=== PATIENT | male | born 1990 | race Caucasian/White ===

== ENCOUNTER 2023-10-12 16:45 | Emergency (ER) | payer OTHER ==
[~2023-10-12] VITALS: Ht 185.4 cm; Wt 111.4 kg
[2023-10-12 17:33] LABS: BASOPHILS # (AUTO) 0.1 X10'3 (0-0.2); BASOPHILS % (AUTO) 0.3 % (0-1); EOSINOPHILS % (AUTO) 0.1 % (0-6); HEMATOCRIT 45.9 % (42.0-52.0); HEMOGLOBIN 15.6 g/dl (14.0-17.9); LYMPHOCYTES # (AUTO) 1.1 X10'3 (1.1-4.8); LYMPHOCYTES % (AUTO) 6.9 % (21-51); MEAN CORPUSCULAR HEMOGLOBIN 28.6 PG (27.0-31.0); MEAN CORPUSCULAR VOLUME 84.2 FL (78-98); MEAN PLATELET VOLUME 9.1 FL (7.4-10.4); MONOCYTES # (AUTO) 0.5 X10'3 (0-0.9); MONOCYTES % (AUTO) 3.3 % (2-12); NEUTROPHILS # (AUTO) 13.9 X10'3 (1.8-7.7); NEUTROPHILS % (AUTO) 89.4 % (42-75); PLATELET COUNT 295 X10'3 (140-440); RED BLOOD COUNT 5.46 X10'6 (4.70-6.10); RED CELL DISTRIBUTION WIDTH 13.6 % (11.5-14.5); WHITE BLOOD COUNT 15.6 X10'3 (4.5-11.0)
[2023-10-12 17:44] LABS: ALBUMIN 4.4 G/DL (3.4-5.0); ANION GAP 17 (8-16); BLOOD UREA NITROGEN 15 MG/DL (7-18); BUN/CREATININE RATIO 13.6 (10.0-20.0); CALCIUM 9.4 MG/DL (8.5-10.1); CHLORIDE 101 MMOL/L (99-107); GLUCOSE 132 MG/DL (70-104); LIPASE 25 U/L (16-77); POTASSIUM 3.6 MMOL/L (3.5-5.1); SODIUM 138 MMOL/L (135-145); TOTAL CARBON DIOXIDE 19.9 MMOL/L (24-32); eCRCL 107 ML/MIN; eGFR 77 ML/MIN
[2023-10-12] MEDS: normal saline 1000ML IV soln IVB ONE (17:54)
[2023-10-12] MEDS: HYDROmorphone 1 mg/ml syringe IV ONE ×2 (17:57→19:25)
[2023-10-12] MEDS: ondansetron/PF 4mg/2ml inj IV ONE ×2 (17:57→19:25)
[2023-10-12] MEDS ORDERED: BUSP30TA3 PO (18:01)
[2023-10-12] MEDS ORDERED: LAMO1TAB2 PO (18:02)
[2023-10-12] MEDS ORDERED: DULO-31 PO (18:03)
[2023-10-12] MEDS ORDERED: iohexol 300mg/ml 100ml inj. ONE (18:11)
[2023-10-12 19:22] LABS: BILIRUBIN,URINE NEGATIVE (Neg); CLARITY,URINE CLEAR (Clear); GLUCOSE, URINE NEGATIVE (Neg); KETONES,URINE TRACE mg/dl (Neg); LEUKOCYTE ESTERASE ,URINE NEGATIVE (Neg); NITRITES, URINE NEGATIVE (Neg); OCCULT BLOOD,URINE NEGATIVE (Neg); PH,URINE 8.5 (4.8-8.0); PROTEIN,URINE NEGATIVE (Neg); UROBILINOGEN,URINE 0.2 E.U/dL (0.2-1.0)
[2023-10-12 19:36] LABS: COLOR,URINE STRAW (Yellow); UA COLLECTION TYPE CLN CATCH MIDSTREAM
[2023-10-12 19:45] LABS: URINE AMPHETAMINE SCREEN NEGATIVE (Neg); URINE BARBITUATE SCREEN NEGATIVE (Neg); URINE BENZODIAZEPINES SCREEN NEGATIVE (Neg); URINE CANNABINOID SCREEN POSITIVE (Neg); URINE COCAINE SCREEN NEGATIVE (Neg); URINE METHADONE SCREEN NEGATIVE (Neg); URINE OPIATE SCREEN NEGATIVE (Neg); URINE PHENCYCLIDINE SCREEN NEGATIVE (Neg)
[2023-10-12] MEDS: diphenhydrAMINE 50 mg/ml inj IM ONE (20:29)
[2023-10-12] MEDS: proMETHazine 25mg tablet PO ONE (20:32)
[2023-10-12] MEDS: proCHLORperazine 10 MG/2 ml inj IV ONE (22:27)
[2023-10-12] MEDS: famotidine/PF 10 mg/ml inj IV ONE (22:28)
[2023-10-12] MEDS: haloperidol lactate 5mg/ml inj IM ONE (22:28)
[2023-10-12] MEDS: pantoprazole 40 MG vial IV ONE (22:31)
[2023-10-12 23:04] LABS: ALBUMIN 3.7 G/DL (3.4-5.0); ANION GAP 8 (8-16); BLOOD UREA NITROGEN 11 MG/DL (7-18); BUN/CREATININE RATIO 10.9 (10.0-20.0); CALCIUM 8.1 MG/DL (8.5-10.1); CHLORIDE 105 MMOL/L (99-107); CREATININE 1.01 MG/DL (0.60-1.10); GLUCOSE 107 MG/DL (70-104); SODIUM 141 MMOL/L (135-145); TOTAL CARBON DIOXIDE 27.7 MMOL/L (24-32); eCRCL 116 ML/MIN; eGFR 85 ML/MIN
[2023-10-13] MEDS ORDERED: ONDA8TAB13 PO (00:41)
[2023-10-13 00:54] VITALS: BP 110/78; PULSE 100; RESP 16; TEMP 98.8; O2SAT 99
== END 2023-10-13 00:59 | disposition home or self-care (01) ==
LOC: ER 16:46
DX: R11.2 Nausea with vomiting, unspecified (principal); R10.30 Lower abdominal pain, unspecified; Z79.899 Other long term (current) drug therapy
CPT/HCPCS: 36415; 74177; 80048; 80305; 81003; 83605; 83690; 85025; 96361; 96372; 96374; 96375; 96376; 99285; C9113; J0780; J1170; J1200; J1630; J2405; J3490; J7030; Q0169; Q9967